=== PATIENT | female | born 1935 | race Asian ===

== ENCOUNTER → 2017-12-23 | Outpatient (CLI) | payer SELFPAY ==
[~2017-12-23] MED LIST: BENICAR20 MG PO; CATAPRES0.1 MG PO; GLIMEPIRIDE2 MG PO; GLUCOPHAGE500 MG PO; HUMULIN NP100 UNIT/1 SC; HYDROCHLOROTHIA25 MG PO; HYGROTON25 MG PO; MOBIC7.5 MG PO; NORVASC10 MG PO; NOVOLOG PE100 UNITS/ SC; Tylenol Regular Stre PO; ULTRAM50 MG PO; ZESTRIL,PRINIVI40 MG PO
== END | disposition home or self-care (01) ==
LOC: RAD 10:00
DX: N26.1 Atrophy of kidney (terminal) (principal); E11.9 Type 2 diabetes mellitus without complications; I10 Essential (primary) hypertension
CPT/HCPCS: 76770